=== PATIENT | male | born 1960 | race Caucasian/White ===

== ENCOUNTER 2020-05-20 12:47 | Outpatient (REF) | payer OTHER, SELFPAY | END 2020-05-20 12:48 | disposition home or self-care (01) | LOC: HO.LNP 12:47 | PROVIDERS: Visit Provider Internal Medicine | DX: Z20.828 Contact with and (suspected) exposure to other viral communicable diseases (principal) | CPT/HCPCS: U0003 ==

== ENCOUNTER 2020-05-23 08:59 | Outpatient (REF) | payer OTHER, SELFPAY ==
--- NOTE | 2020-05-23 | PFT_ITS ---
FLOWS: FEV1 81% of predicted at 3.31 L. FVC 89% of predicted at 4.86 L. FEV1 to FVC ratio of 0.68. Positive bronchodilator response. LUNG VOLUMES: Total lung capacity 111% of predicted at 8.72 L. Residual volume 160% of predicted at 4.01 L. Slow vital capacity 88% of predicted at 4.72 L. Expiratory reserve volume 47% of predicted at 0.78 L. Diffusion capacity is normal. IMPRESSION: Moderate obstructive ventilatory defect with positive bronchodilator response. Increased residual volume suggests air trapping. Decreased expiratory reserve volume suggests extrathoracic restriction likely secondary to abdominal obesity. MD ANAND Mensah/MODL / [id number]
== END 2020-05-23 09:00 | disposition home or self-care (01) ==
LOC: HO.RESP 08:59
PROVIDERS: PCP Internal Medicine; Visit Provider Internal Medicine
DX: Z77.098 Contact with and (suspected) exposure to other hazardous, chiefly nonmedicinal, chemicals (principal)
CPT/HCPCS: 94060; 94727; 94729

== ENCOUNTER → 2020-08-09 14:58 | Outpatient (BNVA) | payer OTHER, SELFPAY | PROVIDERS: PCP Internal Medicine; Visit Provider Hospitalist ==

== ENCOUNTER 2021-03-09 08:43 | Outpatient (REF) | payer OTHER, SELFPAY ==
--- NOTE | ~2021-03-09 | XR_ITS ---
EXAMINATION: XR CHEST CLINICAL INFORMATION: COPD COMPARISON: 08/28/2019 TECHNIQUE: 2 views of the chest were obtained. FINDINGS: Hyperinflation stable. No significant abnormality is noted involving the heart, lungs, mediastinum, bony thorax or soft tissues. XR/XR chest 2V IMPRESSION: Stable COPD. No acute superimposed process.
[2021-03-09 09:42] LABS: MANUAL DIFF FLAG NO
[2021-03-09 09:48] LABS: Basophils Absolute Auto 0.1 X10*3/uL (0.0-0.2); Eosinophils Absolute Auto 0.2 X10*3/uL (0.0-0.4); Eosinophils Percent Auto 3.4 % (0-4); Hematocrit 45.2 % (42-52); Hemoglobin 15.6 g/dl (14.0-18.0); Imm Gran Abs Auto 0.07 X10*3/uL (0.00-0.03); Imm Gran Pct Auto 1.2 % (0.0-0.4); Lymphocytes Absolute Auto 1.5 X10*3/uL (1.2-4.9); Lymphocytes Percent Auto 25.2 % (20-40); Mean Corpuscular HGB Conc 34.5 g/dl (31.0-36.0); Mean Corpuscular Hemoglobin 31.8 pg (27.0-33.0); Mean Corpuscular Volume 92.2 fL (80-98); Mean Platelet Volume 8.9 fL (9.4-12.4); Monocytes Absolute Auto 0.7 X10*3/uL (0.1-1.2); Neutrophils Absolute Auto 3.4 X10*3/uL (2.0-8.3); Neutrophils Percent Auto 57.2 % (45-73); Platelet Count 321 X10*3/uL (160-400); Red Cell Distribution Width 12.2 % (11.0-16.0); White Blood Count 5.9 X10*3/uL (4.8-10.8)
[2021-03-09 10:09] LABS: Alanine Aminotransferase 23 U/L (0-40); Albumin Level 4.2 g/dL (3.5-5.0); Alkaline Phosphatase 57 U/L (39-117); Anion Gap 14 (12-20); Aspartate Amino Transferase 17 U/L (5-37); Bilirubin Total 0.5 mg/dL (0.0-1.0); Blood Urea Nitrogen 11 mg/dL (9-16); Calcium 9.5 mg/dL (8.4-10.2); Carbon Dioxide 24 mmol/L (22-29); Chloride 107 mmol/L (96-108); Cholesterol 187 mg/dL; Estimated Glomerular Filt Rate > 60; Glucose Fasting 93 mg/dL (60-99); HDL Cholesterol 44 mg/dL; LDL Cholesterol Calculated 105 mg/dl; Potassium 4.9 mmol/L (3.3-5.1); Sodium 140 mmol/L (135-145); Triglycerides 194 mg/dL
[2021-03-09 10:33] LABS: Prostate Specific Antigen 1.51 ng/mL (<0.05-4.0); Vitamin D 25-OH Total 22.3 ng/mL (>30)
[2021-03-09 11:03] LABS: Vitamin B12 160 pg/mL (200-900)
== END 2021-03-09 08:44 | disposition home or self-care (01) ==
LOC: HO.LAB 08:43
PROVIDERS: Absent Provider Hospitalist; PCP Internal Medicine; Visit Provider Internal Medicine
DX: Z00.00 Encounter for general adult medical examination without abnormal findings (principal); J44.9 Chronic obstructive pulmonary disease, unspecified; Z12.5 Encounter for screening for malignant neoplasm of prostate
CPT/HCPCS: 36415; 71046; 80053; 80061; 82306; 82607; 84153; 85025

== ENCOUNTER 2021-06-22 11:05 | Outpatient (REF) | payer OTHER, SELFPAY ==
[2021-06-22 12:03] LABS: Influenza A PCR NEGATIVE (Negative); Influenza B PCR NEGATIVE (Negative); Resp Syncy Virus RNA Qual PCR NEGATIVE (Negative); SARS COV2 PCR INHOUSE NEGATIVE (Negative)
== END 2021-06-22 11:06 | disposition home or self-care (01) ==
LOC: HO.LNP 11:05
PROVIDERS: Visit Provider Physician Assistant Medical
DX: Z20.822 Contact with and (suspected) exposure to COVID-19 (principal); J06.9 Acute upper respiratory infection, unspecified
CPT/HCPCS: 0241U

== ENCOUNTER 2021-09-29 07:25 | Day surgery (SDC) | payer OTHER, SELFPAY ==
[2021-09-25 11:49] VITALS: BMI 28.8
[2021-09-29 07:27] VITALS: BP 161/89; PULSE 89; RESP 18; TEMP 36.3; O2SAT 98
[2021-09-29] MEDS: Lactated Ringers 1,000 ML 50 ML IVCONT (07:50)
--- NOTE | 2021-09-29 08:28 | P.CONAN_ITS ---
HPI - Anesthesia Eval Consult details Narrative: Screening Colonoscopy [facility] Active Problems Active Problems: All Active Problems (Updated 09/25/21 @ 11:49 by Diana Lion RN) DVT (deep venous thrombosis) (Acute) Viral illness (Acute) Dyspnea (Acute) Asthma-COPD overlap syndrome (Acute) Past Medical History Medical History (Updated 09/25/21 @ 11:49 by Diana Lion RN) Asthma-COPD overlap syndrome COVID-19 vaccine series completed Dyspnea Gout HTN (hypertension) Family History Family history of problems with anesthesia: No Surgical History Surgical History (Updated 09/25/21 @ 11:37 by Diana Lion RN) H/O colonoscopy History of Problems with Anesthesia: No Social History Social History (Updated 08/09/20 @ 15:11 by SAMANTHA Faustin) Are you a primary skin care instructor to a significant other at home: No Do you presently have visiting nurse or other home services: No Patient Tobacco Use Status: Never used Tobacco Use of substances other than those prescribed or required for medical reasons: No Have you been hit, kicked, punched, or otherwise hurt by someone within the past year? If so, by whom?: No Are you DNR?: No Advance Directives: No Advance Directives Information Provided: Yes (brochure mailed) Advance Directives on File: No Recently lost weight without trying: No Eating poorly because of decreased appetite: No Nutrition Risks: No Nutritional Risk Poor oral hygiene: No Meds Allergies Allergy/AdvReac Type Severity Reaction Status Date / Time No Known Allergies Allergy Verified 06/22/21 09:20 Active Medications: Current Medications Lactated Ringer's (Lr) 1,000 mls @ 50 mls/hr IVCONT .Q20H NASRIN Last Admin: 09/29/21 07:50 Dose: 50 mls/hr Documented by: Sodium Biphosphate/Sodium Phosphate (Sodium Phosphate,[place]-Dibasic 133 Ml Enema) 133 ml [place] ONCE PRN PRN Reason: Poor Colonoscopy Prep Results Home Medications Medication Instructions Recorded Confirmed Last Taken Type lisinopril 10 mg tablet 10 mg PO DAILY 08/09/20 09/25/21 Unknown History colchicine 0.6 mg tablet 1 tab PO BID PRN 09/25/21 09/25/21 Unknown History Exam Exam Date and Time: September 29, 2021 0828 Height,Weight and Vital Signs: Height 6 ft 2 in Weight 101.605 kg Last Vital Signs Temp 97.4 F 09/29/21 07:27 Pulse 89 09/29/21 07:27 Resp 18 09/29/21 07:27 BP 161/89 H 09/29/21 07:27 Pulse Ox 98 09/29/21 07:27 Airway Mallampati Class: III TM Dist: >3cm Neck ROM: Full Loose/Missing/Broken Teeth: No Heart: rrr+s1s2 Lungs: cta b/l Assessment and Plan Assessment Anesthesia Assessment: Anesthesia Plan Discussed and Chart Reviewed Final Anesthetic Review Family History of Problems with Anesthesia: No History of Problems with Anesthesia: No NPO: Yes ASA Class: III Final Preanesthetic Review: No Changes in Pt Med Stat, Meds/Allgs Chart Reviewed, Consent Obtained/Reviewed and Anes Risks/Benef Reviewed Patient Risk: Intermediate Procedure Risk: Low Assessment/Block/Sedation in SS: Assess/Block/Sedation-SS Anesthetic Plan Anesthetic Plan: MAC: and Agree w/ Assess. and Plan Disposition: Standard PACU
--- NOTE | 2021-09-29 09:29 | PM.OP ---
Brief Operative Note Date of Service: 09/29/21 Pre-op diagnosis: Screening Post-op diagnosis: other (Colon polyps) Procedure: Colonoscopy to the cecum and TI with hot snare polypectomy x 3 Surgeon: Tevin Monroy Anesthesia: MAC Was an Web Operations Lead used for this Procedure?: No Estimated blood loss (mL): 0 Pathology: other (A. Proximal ascending colon polyp B. Polyps at 30cm) Condition: stable Disposition: PACU
[2021-09-29 09:30] VITALS: BP 108/65; PULSE 70; RESP 14; TEMP 36.1; O2SAT 95
[2021-09-29 09:45] VITALS: BP 156/96; PULSE 73; RESP 18; TEMP 36.1; O2SAT 100
--- NOTE | 2021-09-29 10:55 | OP_ITS ---
SURGEON: Tevin Monroy MD INDICATIONS: The patient presents for evaluation of colorectal cancer screening and personal history of tubular adenoma of the colon. Full consent was obtained from him for this, including risks of bleeding and perforation. PREOPERATIVE DIAGNOSIS: Colorectal cancer screening. POSTOPERATIVE DIAGNOSIS: Colorectal cancer screening, colon polyps, diverticulosis, and internal hemorrhoids. PROCEDURE PERFORMED: ESTIMATED BLOOD LOSS: COMPLICATIONS: ANESTHESIA: Monitored anesthesia care. ASSISTANTS: SPECIMENS: PROCEDURE: Colonoscopy to the cecum and terminal ileum with hot snare polypectomy x3. DESCRIPTION OF PROCEDURE: The patient was placed in the left lateral decubitus position. The digital rectal exam revealed no abnormalities. The Olympus video pediatric colonoscope was entered into the rectum and advanced easily to the cecum. Once in the cecum, I did identify normal-appearing cecal pouch with appendiceal orifice and a normal-appearing ileocecal valve. The terminal ileum was cannulated and appeared normal. Scope was withdrawn back in the colon. The entire cecum and ileocecal valve appeared normal. The scope was slowly withdrawn assessing all mucosal surfaces carefully. Preparation was excellent. In the proximal ascending colon was an approximately 6 to 8 mm grossly adenomatous polyp, which was removed with a hot snare polypectomy and recovered by suction. The polypectomy site appeared clean, without any sign of residual polyp, nor bleeding. At 30 cm, there were 2 approximately 6 to 8 mm polyps, which were each snared and removed with a hot snare polypectomy. Both polypectomy sites appeared clean, without any sign of residual polyp nor bleeding. The polyps were recovered by suction. I did not visualize any other polyps, colitis, or angiodysplasia. There was a mild amount of sigmoid diverticulosis. In the rectum, scope was retroflexed visualizing internal hemorrhoids, but no other pathology. The rectal mucosa appeared normal. The scope was straightened and withdrawn from the patient. He tolerated the procedure well and was returned to recovery area in stable condition. IMPRESSION: 1. Colon polyps, status post hot snare polypectomy. 2. Diverticulosis. 3. Internal hemorrhoids. PLAN: The results of the pathology will be checked. I would recommend a repeat colonoscopy in 5 years for further screening and surveillance. He was advised not to use any aspirin and NSAIDs for 1 week. Tevin Monroy MD RMW/MODL / [id number]
== END 2021-09-29 10:07 | disposition home or self-care (01) ==
PROVIDERS: PCP Internal Medicine; Visit Provider Internal Medicine
PROC: 0DJD8ZZ Inspection of Lower Intestinal Tract, Via Natural or Artificial Opening Endoscopic (ICD-10-PCS; CPT 45378; principal; 2021-09-29 08:30)
DX: Z12.11 Encounter for screening for malignant neoplasm of colon (principal); Z86.010 Personal history of colon polyps; D12.2 Benign neoplasm of ascending colon; D12.5 Benign neoplasm of sigmoid colon; K57.30 Diverticulosis of large intestine without perforation or abscess without bleeding; K64.8 Other hemorrhoids; I10 Essential (primary) hypertension; E53.8 Deficiency of other specified B group vitamins; Z79.899 Other long term (current) drug therapy
CPT/HCPCS: 45385; 88305

== ENCOUNTER 2022-12-18 17:17 | Outpatient (REF) | payer OTHER, SELFPAY ==
--- NOTE | ~2022-12-18 | XR_ITS ---
EXAMINATION: XR FOOT, RIGHT CLINICAL INFORMATION: Right foot pain. COMPARISON: None available. TECHNIQUE: AP, lateral, and oblique views of the right foot. FINDINGS: There is mild hallux valgus deformity with mild first metatarsophalangeal degenerative joint changes. There is no acute fracture or dislocation. The tarsal bones are normally aligned. There is a small retrocalcaneal spur. The soft tissues are unremarkable. XR/XR foot RT min 3V IMPRESSION: 1. Mild hallux valgus deformity and mild first metatarsophalangeal osteoarthritis. 2. Small degenerative retrocalcaneal spur. 3. No acute fracture.
[2022-12-18 18:24] LABS: Anion Gap 15 (12-20); Blood Urea Nitrogen 18 mg/dL (9-16); C Reactive Protein < 0.10 mg/dL (< or = 0.50); Carbon Dioxide 26 mmol/L (22-29); Chloride 105 mmol/L (96-108); Estimated Glomerular Filt Rate > 60; Glucose Random 93 mg/dL (60-115); Potassium 4.6 mmol/L (3.3-5.1); Sodium 141 mmol/L (135-145)
[2022-12-18 19:02] LABS: Uric Acid 7.3 mg/dL (3.4-7.0)
[2022-12-18 19:23] LABS: Erythrocyte Sedimentation Rate 2 MM/HR (0-15)
== END 2022-12-18 17:18 | disposition home or self-care (01) ==
LOC: HO.LAB 17:17
PROVIDERS: PCP Internal Medicine; Visit Provider Internal Medicine
DX: M79.641 Pain in right hand (principal); Z87.39 Personal history of other diseases of the musculoskeletal system and connective tissue
CPT/HCPCS: 36415; 73630; 80048; 84550; 85652; 86140

== ENCOUNTER 2023-09-10 10:06 | Outpatient (REF) | payer OTHER, SELFPAY ==
[2023-09-10 10:51] LABS: MANUAL DIFF FLAG NO
[2023-09-10 11:02] LABS: Basophils Absolute Auto 0.1 X10*3/uL (0.0-0.2); Basophils Percent Auto 1.1 % (0-2); Eosinophils Absolute Auto 0.1 X10*3/uL (0.0-0.4); Eosinophils Percent Auto 1.6 % (0-4); Hematocrit 50.4 % (42.0-52.0); Hemoglobin 16.8 g/dl (14.0-18.0); Imm Gran Abs Auto 0.12 X10*3/uL (0.00-0.03); Imm Gran Pct Auto 1.5 % (0.0-0.4); Lymphocytes Absolute Auto 1.6 X10*3/uL (1.2-4.9); Lymphocytes Percent Auto 19.9 % (20-40); Mean Corpuscular HGB Conc 33.3 g/dl (31.0-36.0); Mean Corpuscular Hemoglobin 31.1 pg (27.0-33.0); Mean Corpuscular Volume 93.2 fL (80.0-98.0); Mean Platelet Volume 8.7 fL (9.4-12.4); Monocytes Absolute Auto 0.9 X10*3/uL (0.1-1.2); Monocytes Percent Auto 11.2 % (2-11); Neutrophils Absolute Auto 5.3 x10*3/uL (2.0-8.3); Neutrophils Percent Auto 64.7 % (45-73); Platelet Count 342 X10*3/uL (160-400); Red Blood Count 5.41 X10*6/uL (4.60-5.80); Red Cell Distribution Width 12.2 % (11.0-16.0); White Blood Count 8.1 X10*3/uL (4.8-10.8)
[2023-09-10 11:27] LABS: Alanine Aminotransferase 18 U/L (0-40); Albumin Level 4.3 g/dL (3.5-5.0); Alkaline Phosphatase 55 U/L (39-117); Anion Gap 13 (12-20); Aspartate Amino Transferase 14 U/L (5-37); Bilirubin Total 0.7 mg/dL (0.0-1.0); Blood Urea Nitrogen 13 mg/dL (9-16); C Reactive Protein < 0.10 mg/dL (< or = 0.50); Calcium 9.5 mg/dL (8.4-10.2); Carbon Dioxide 25 mmol/L (22-29); Chloride 108 mmol/L (96-108); Cholesterol 207 mg/dL (<200); Estimated Glomerular Filt Rate > 60; Glucose Random 100 mg/dL (60-115); Potassium 4.8 mmol/L (3.3-5.1); Sodium 141 mmol/L (135-145); Total Protein 7.5 g/dL (6.5-8.0)
[2023-09-10 11:28] LABS: Prostate Specific Antigen Scr 2.53 ng/mL (<0.05-4.0)
[2023-09-10 11:34] LABS: Vitamin B12 215 pg/mL (200-900)
== END 2023-09-10 10:07 | disposition home or self-care (01) ==
LOC: HO.10HDL 10:06
PROVIDERS: Visit Provider Internal Medicine
DX: Z12.5 Encounter for screening for malignant neoplasm of prostate (principal); R51.9 Headache, unspecified; E53.8 Deficiency of other specified B group vitamins; R35.1 Nocturia; H53.9 Unspecified visual disturbance
CPT/HCPCS: 36415; 80053; 82465; 82550; 82607; 84153; 85025; 86140

== ENCOUNTER 2024-04-11 11:46 | Outpatient (AMB) | payer OTHER, SELFPAY ==
[2024-04-11 11:47] VITALS: BP 142/86; PULSE 94; TEMP 36.7; O2SAT 96
--- NOTE | 2024-04-11 11:47 | MHC.OFFWIV ---
Intake Vital Signs 04/11/24 11:47 Height 6 ft 2 in BP 142/86 H Blood Pressure Location Rt brachial Position Sitting Pulse 94 Pulse Source Pulse Oximeter Temp 98.1 F Temp Source Oral Pulse Oximetry (%) 96 Oxygen Delivery Method Room Air Intake Visit Reasons: EP COPD/Diff breathing/headache/dizzy Intake Note: pt is here for difficulty breathing with a headache and dizziness. has dx of COPD Patient Tobacco Use Status: Never used Tobacco Allergies No Known Allergies Allergy (Verified 04/11/24 11:48) Do you need a note to return to daycare/school/sports/work: No HPI HPI Comments History of Present Illness Details Patient presents to office with cough He said started last night + chest tightness/SOB + crackling in lungs Denies smoking hx but + COPD diagnosis. No treatment used for it Last week rehabed old house and bad air quality He has bad reaction to smoke usually No fever or chills Tried OTC medicine like DayQuila nd NyQuil No covid test completed at home [facility] Medical History (Updated 04/11/24 @ 12:15 by Sandy Reagan PA-C) Gout COVID-19 vaccine series completed HTN (hypertension) Dyspnea Asthma-COPD overlap syndrome Surgical History (Updated 09/25/21 @ 11:37 by Diana Lion RN) H/O colonoscopy Social History (Updated 08/09/20 @ 15:11 by SAMANTHA Faustin) Are you a primary live in caregiver to a significant other at home: No Do you presently have visiting nurse or other home services: No Patient Tobacco Use Status: Never used Tobacco Review of Systems Const Denies chills, Reports fatigue and Denies fever(s) ENT Denies otalgia, Reports nasal congestion, Denies sinus pressure, Reports sore throat, Denies throat swelling and Denies tongue swelling Card Denies chest pain, Denies rapid heart rate and Reports dyspnea Resp Reports chest congestion, Reports cough, Reports dyspnea and Reports wheezing GI Denies abdominal pain and Denies vomiting Musc Denies myalgias Endo Reports fatigue Aller/Immun Denies throat swelling, Denies tongue swelling and Reports wheezing Physical Exam Vital Signs: Last Vital Signs Temp 98.1 F 04/11/24 11:47 Pulse 94 04/11/24 11:47 BP 142/86 H 04/11/24 11:47 Pulse Ox 96 04/11/24 11:47 Oxygen Delivery Method Room Air 04/11/24 11:47 General: Non-toxic, NAD. Speaking full sentences. Skin: Warm dry throughout Eye: EOMI HENT: Airway patent. Uvula midline. No pharyngeal erythema or edema. No SANDBLAST OPERATOR. Bilateral canals clear. TM non-erythematous, non-bulging. No TM perforation or hemotympanum noted. Respiratory: +rhonchi throughout. No accessory muscle use or stridor Cardiac: RRR. No murmur MSK: Full ROM extremities. Neurology: A/O. No aphasia or facial droop. Gait without abnormality Psych: Good mood and affect Assessment & Plan Assessment & Plan (1) Cough: Code(s): R05.9 - Cough, unspecified Qualifiers: Cough type: acute Qualified Code(s): R05.1 - Acute cough Plan: Pt seen and evaluated Discussed HTN and use of OTC medicine causing Worsening symptoms Albuterol Solution administered by myself; [facility] # [id number] Pt had improvement of airation after tx HR stable <100 post nebulizer No rales noted on xray COVID/flu rsv swab obtained Will cover with prednisone, azithromycin and proair prn Discussed s/e of medications Any CP, SOB or worse go to ED All questions answered at time of d/c and pt had no additional questions Orders: Orders SARS-CoV2/FLU/RSV Today R05.9 - Cough, unspecified AMB Nebulizer Treatment Today R05.9 - Cough, unspecified Medications: New albuterol sulfate 2.5 mg (3 mL) inhalation ONCE 3 mL 0RF wheeze R05.9 - Cough, unspecified albuterol sulfate 90 mcg/actuation (Proair Digihaler) 1 inh inhalation Q4-6H PRN 1 ea 0RF shortness of breath or wheezing azithromycin start on day 2 of therapy 250 mg PO DAILY 6 tabs 0RF 6 days prednisone 40 mg (2 x 20 mg) PO DAILY 8 tabs 0RF Coding Level of Care Code Est Pt Level 4 (91527) Diagnoses Acute cough R05.1 Cough type: acute
== END 2024-04-11 13:33 | disposition home or self-care (01) ==
PROVIDERS: PCP Internal Medicine; Visit Provider Physician Assistant
DX: R05.1 Acute cough (principal)

== ENCOUNTER 2024-04-11 11:46 | Outpatient (REF) | payer OTHER, SELFPAY ==
[2024-04-11 16:24] LABS: Influenza A PCR NEGATIVE (Negative); Influenza B PCR NEGATIVE (Negative); Resp Syncy Virus RNA Qual PCR NEGATIVE (Negative); SARS COV2 PCR INHOUSE NEGATIVE (Negative)
== END 2024-04-11 11:47 | disposition home or self-care (01) ==
LOC: HO.LNP 11:46
PROVIDERS: PCP Internal Medicine; Visit Provider Physician Assistant
DX: R05.9 Cough, unspecified (principal)
CPT/HCPCS: 0241U

== ENCOUNTER 2024-05-27 13:35 | Outpatient (REF) | payer OTHER, SELFPAY ==
[2024-05-27 14:32] LABS: MANUAL DIFF FLAG NO
[2024-05-27 14:40] LABS: Basophils Absolute Auto 0.1 X10*3/uL (0.0-0.2); Basophils Percent Auto 0.8 % (0-2); Eosinophils Absolute Auto 0.2 X10*3/uL (0.0-0.4); Eosinophils Percent Auto 2.5 % (0-4); Hematocrit 49.1 % (42.0-52.0); Hemoglobin 17.1 g/dl (14.0-18.0); Imm Gran Abs Auto 0.08 X10*3/uL (0.00-0.03); Imm Gran Pct Auto 0.9 % (0.0-0.4); Lymphocytes Absolute Auto 1.7 X10*3/uL (1.2-4.9); Lymphocytes Percent Auto 18.4 % (20-40); Mean Corpuscular HGB Conc 34.8 g/dl (31.0-36.0); Mean Corpuscular Hemoglobin 31.3 pg (27.0-33.0); Mean Corpuscular Volume 89.8 fL (80.0-98.0); Mean Platelet Volume 8.6 fL (9.4-12.4); Monocytes Absolute Auto 0.9 X10*3/uL (0.1-1.2); Monocytes Percent Auto 10.5 % (2-11); Neutrophils Percent Auto 66.9 % (45-73); Platelet Count 304 X10*3/uL (160-400); Red Blood Count 5.47 X10*6/uL (4.60-5.80); Red Cell Distribution Width 12.2 % (11.0-16.0)
[2024-06-01 21:08] LABS: Class Alternaria alternata 0; Class Aspergillus fumigatus 0; Class Bermuda Grass 0; Class Birch 0; Class Cat Dander 0; Class Cladosporium herbarum 0; Class Cockroach 0; Class Common Ragweed 0; Class Cottonwood 0; Class Derm. pterony 3; Class Dermatophagoides farinae 3; Class Dog Dander 0; Class Elm 0; Class Maple Box Elder 0; Class Mountain Cedar 0; Class Mouse Urine Protein 0; Class Mugwort 0; Class Oak 0; Class Penicillium crysogenum 0; Class Rough Pigweed 0; Class Sheep Sorrel 0; Class Sycamore 0; Class Timothy Grass 0/1; Class Walnut Tree 0; Class White Ash 0; Class White Mulberry 0; E001 - IgE Cat Dander <0.10 kU/L; E005 - IgE Dog Dander <0.10 kU/L; E072-IgE Mouse Urine <0.10 kU/L; G002 IgE Bermuda Grass <0.10 kU/L; G006 - IgE Timothy Grass 0.17 kU/L; I006-IgE Cockroach, German <0.10 kU/L; Immunoglobulin E 48 kU/L (<OR=114); M001 IgE Penicillium chrysogen <0.10 kU/L; M002 - IgE Cladosporium herbar <0.10 kU/L; M003 - IgE Aspergillus fumigat <0.10 kU/L; M006 - IgE Alternaria alternat <0.10 kU/L; T001 IgE Maple/Box Elder <0.10 kU/L; T003 IgE Common Silver Birch <0.10 kU/L; T006 - IgE Cedar, Mountain <0.10 kU/L; T007 - IgE Oak, White <0.10 kU/L; T008 IgE Elm, American <0.10 kU/L; T010 - IgE Walnut <0.10 kU/L; T011 - IgE Maple Leaf Sycamore <0.10 kU/L; T014 - IgE Cottonwood <0.10 kU/L; T015 - IgE Ash, White <0.10 kU/L; T070 - IgE White Mulberry <0.10 kU/L; W001 - IgE Ragweed, Short <0.10 kU/L; W006 - IgE Mugwort <0.10 kU/L; W014 IgE Pigweed, Common <0.10 kU/L; W018 IgE Sheep Sorrel <0.10 kU/L
== END 2024-05-27 13:36 | disposition home or self-care (01) ==
LOC: HO.LAB 13:35
PROVIDERS: PCP Internal Medicine; Visit Provider Internal Medicine Pulmonary Disease
DX: Z91.09 Other allergy status, other than to drugs and biological substances (principal)
CPT/HCPCS: 36415; 82785; 85025; 86003

== ENCOUNTER 2024-05-27 13:35 | Outpatient (AMB) | payer OTHER, SELFPAY ==
[2024-05-27 13:45] VITALS: BP 140/90; PULSE 96; O2SAT 98; BMI 29.4
--- NOTE | 2024-05-27 13:45 | A.OFFVIS_ITS ---
Vital Signs 05/27/24 13:45 Height 6 ft 2 in Weight 229 lb 4.492 oz BMI 29.4 BP 140/90 H Blood Pressure Location Rt brachial Position Sitting Pulse 96 Pulse Source Doppler Pulse Oximetry (%) 98 Oxygen Delivery Method Room Air Intake Visit Reasons: COPD Allergies No Known Allergies Allergy (Verified 05/27/24 13:47) HPI HPI COPD: Details: 63-year-old gentleman nonsmoker, with underlying history of asthma in his childhood that abated in later 10 years referred for pulmonary evaluation after patient had an episode of chest tightness and dyspnea requiring visit to an urgent care where he was treated with a course of prednisone with resolution of his underlying symptoms. Patient does complain of episodes of chest tightness when exposed to cigarette smoke. He does have multiple first-degree relatives with asthma and environmental allergies. He does complain of intermittent environmental allergies. 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 [facility] Medical History (Updated 05/27/24 @ 14:29 by Tio Vidales MD) Gout COVID-19 vaccine series completed HTN (hypertension) Dyspnea Asthma-COPD overlap syndrome Surgical History (Updated 09/25/21 @ 11:37 by Diana Lion RN) H/O colonoscopy Social History Are you a primary companion caregiver to a significant other at home: No Do you presently have visiting nurse or other home services: No Patient Tobacco Use Status: Never used Tobacco Review of Systems Const Denies daytime sleepiness, Denies excessive sweating, Denies fatigue, Denies fever(s), Denies lethargy, Denies malaise, Denies night sweats, Denies snoring and Denies weight loss Eyes Denies blurry vision and Denies itchy eyes ENT Denies nasal congestion, Denies post nasal drip, Denies sinus pain, Denies sinus pressure and Denies other ( Thrush) Card Denies chest pain, Denies pedal edema, Reports dyspnea, Denies orthopnea and Denies paroxysmal nocturnal dyspnea Resp Denies cough, Denies hemoptysis, Denies excessive phlegm production, Reports dyspnea, Denies snoring and Reports wheezing GI Denies abdominal pain and Denies heartburn Musc Denies myalgias, Denies arthralgias and Denies joint swelling Skin/Breast Denies rash Neuro Denies memory loss and Denies seizure-like activity Psych Denies abnormal sleep pattern, Denies anxiety and Denies memory loss Endo Denies excessive sweating, Denies fatigue and Denies heat intolerance Jean Carlos/Lymph Denies easy bruising Aller/Immun Denies itchy eyes, Denies seasonal rhinorrhea and Reports wheezing Physical Exam Vital Signs: Last Vital Signs Pulse 96 05/27/24 13:45 BP 140/90 H 05/27/24 13:45 Pulse Ox 98 05/27/24 13:45 Oxygen Delivery Method Room Air 05/27/24 13:45 BMI result Body Mass Index 29.4 Const General: no acute distress and alert Nutritional Appearance: not obese Orientation/consciousness: Other orientation findings ( oriented) HEENT Head: Yes atraumatic Eyes General: appearance normal, both eyes and all related structures Sclerae: sclerae normal EOM: EOMs intact bilaterally Neck Neck: Yes supple Lymphatic: no lymphadenopathy noted Resp Effort & Inspection: normal respiratory effort and no use of accessory muscles Auscultation: clear to auscultation bilaterally Cardio Rate: regular rate Rhythm: regular rhythm Heart sounds: no gallops, no murmurs and no rubs Skin General skin exam: other ( warm) Extrem General: No clubbing, No cyanosis and No edema Assessment & Plan Assessment & Plan (1) Asthma: Code(s): J45.909 - Unspecified asthma, uncomplicated Category: Medical Plan: Likely underlying asthma of unclear severity. Will obtain full PFT. Will start on empiric Breo and albuterol MDI. (2) Environmental allergies: Code(s): Z91.09 - Other allergy status, other than to drugs and biological substances Category: Medical Plan: Will obtain IgE level, CBC with differential, and RAST panel for further evaluation. Orders: Orders PFT pulmonary function test Today J44.9 - Chronic obstructive pulmonary disease, unspecified Resp Allergy Profile Region I Today Z91.09 - Other allergy status, other than to drugs and biological substances Complete Blood Count Auto Diff Today Z91.09 - Other allergy status, other than to drugs and biological substances Medications: New fluticasone furoate-vilanterol 200-25 mcg/dose (Breo Ellipta) 1 inh inhalation DAILY 1 ea 6RF J44.9 - Chronic obstructive pulmonary disease, unspecified Refilled albuterol sulfate 90 mcg/actuation (Proair Digihaler) 1 inh inhalation Q4-6H PRN 1 ea 6RF shortness of breath or wheezing J44.9 - Chronic obstructive pulmonary disease, unspecified Coding Level of Care Code New Pt Level 4 (72379) Diagnoses Asthma J45.909 Environmental allergies Z91.09
== END 2024-05-27 14:15 | disposition home or self-care (01) ==
LOC: HO.HPS 13:35
PROVIDERS: PCP Internal Medicine; Visit Provider Internal Medicine Pulmonary Disease
DX: J45.909 Unspecified asthma, uncomplicated (principal); Z91.09 Other allergy status, other than to drugs and biological substances
CPT/HCPCS: 99204

== ENCOUNTER 2024-07-04 13:00 | Outpatient (REF) | payer OTHER, SELFPAY ==
[2024-07-04 10:02] VITALS: PULSE 98; O2SAT 97
--- NOTE | 2024-07-04 12:30 | PFT_ITS ---
Indication: Dyspnea Spirometry [FEV1 to FVC 59%; FEV1 3.13 L; FVC 5.35 L. there was a significant response to bronchodilators noted. Maximum voluntary ventilation 72% predicted] Lung Volumes [Total lung capacity that is 7% predicted; expiratory reserve volume 44% predicted] Diffusion Capacity [DLCO 117% predicted] Comparisons [None] Interpretation [There is a obstructive ventilatory defect consistent with moderate COPD. There is a significant response to bronchodilators noted. Mild decrease in the maximum voluntary ventilation secondary to likely deconditioning. Lung volumes are within normal limits except for decreased expiratory reserve volume likely secondary to an elevated BMI. Diffusing capacity is within normal limits. Clinical correlation warranted.] MTDD
== END 2024-07-04 13:01 | disposition home or self-care (01) ==
LOC: HO.RESP 13:00
PROVIDERS: PCP Internal Medicine; Visit Provider Internal Medicine Pulmonary Disease
DX: J44.9 Chronic obstructive pulmonary disease, unspecified (principal)
CPT/HCPCS: 94010; 94640; 94727; 94729

== ENCOUNTER 2024-07-06 13:08 | Outpatient (AMB) | payer OTHER, SELFPAY ==
[2024-07-06 13:09] VITALS: BP 158/78; PULSE 86; O2SAT 100; BMI 29.9
--- NOTE | 2024-07-06 13:09 | A.OFFVIS_ITS ---
Vital Signs 07/06/24 13:09 Height 6 ft 2 in Weight 233 lb BMI 29.9 BP 158/78 H Blood Pressure Location Rt brachial Position Sitting Pulse 86 Pulse Source Doppler Pulse Oximetry (%) 100 Oxygen Delivery Method Room Air Intake Visit Reasons: COPD Allergies No Known Allergies Allergy (Verified 05/27/24 13:47) HPI HPI COPD: Details: 63-year-old gentleman nonsmoker, with underlying history of asthma in his childhood that abated in later 10 years referred for pulmonary evaluation after patient had an episode of chest tightness and dyspnea requiring visit to an urgent care where he was treated with a course of prednisone with resolution of his underlying symptoms. Patient does complain of episodes of chest tightness when exposed to cigarette smoke. He does have multiple first-degree relatives with asthma and environmental allergies. He does complain of intermittent environmental allergies. 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 After the last office visit patient was started on Breo, however his insurance did not cover so he only continued on albuterol MDI/nebs. He did complete his pulmonary function testing that showed underlying moderate obstructive ventilatory defect with significant bronchodilator response. His immunologic workup shows significant allergic component to his symptoms. [facility] Medical History (Updated 05/27/24 @ 14:29 by Tio Vidales MD) Gout COVID-19 vaccine series completed HTN (hypertension) Dyspnea Asthma-COPD overlap syndrome Surgical History (Updated 09/25/21 @ 11:37 by Diana Lion RN) H/O colonoscopy Social History Are you a primary customer care consultant to a significant other at home: No Do you presently have visiting nurse or other home services: No Patient Tobacco Use Status: Never used Tobacco Review of Systems Const Denies daytime sleepiness, Denies excessive sweating, Denies fatigue, Denies fever(s), Denies lethargy, Denies malaise, Denies night sweats, Denies snoring and Denies weight loss Eyes Denies blurry vision and Denies itchy eyes ENT Denies nasal congestion, Denies post nasal drip, Denies sinus pain, Denies sinus pressure and Denies other ( Thrush) Card Denies chest pain, Denies pedal edema, Denies dyspnea, Denies orthopnea and Denies paroxysmal nocturnal dyspnea Resp Denies cough, Denies hemoptysis, Denies excessive phlegm production, Denies dyspnea, Denies snoring and Denies wheezing GI Denies abdominal pain and Denies heartburn Musc Denies myalgias, Denies arthralgias and Denies joint swelling Skin/Breast Denies rash Neuro Denies memory loss and Denies seizure-like activity Psych Denies abnormal sleep pattern, Denies anxiety and Denies memory loss Endo Denies excessive sweating, Denies fatigue and Denies heat intolerance Jean Carlos/Lymph Denies easy bruising Aller/Immun Denies itchy eyes, Denies seasonal rhinorrhea and Denies wheezing Physical Exam Vital Signs: Last Vital Signs Pulse 86 07/06/24 13:09 BP 158/78 H 07/06/24 13:09 Pulse Ox 100 07/06/24 13:09 Oxygen Delivery Method Room Air 07/06/24 13:09 BMI result Body Mass Index 29.9 Const General: no acute distress and alert Nutritional Appearance: not obese Orientation/consciousness: Other orientation findings ( oriented) HEENT Head: Yes atraumatic Eyes General: appearance normal, both eyes and all related structures Sclerae: sclerae normal EOM: EOMs intact bilaterally Neck Neck: Yes supple Lymphatic: no lymphadenopathy noted Resp Effort & Inspection: normal respiratory effort and no use of accessory muscles Auscultation: clear to auscultation bilaterally Cardio Rate: regular rate Rhythm: regular rhythm Heart sounds: no gallops, no murmurs and no rubs Skin General skin exam: other ( warm) Extrem General: No clubbing, No cyanosis and No edema Assessment & Plan Assessment & Plan (1) Asthma-COPD overlap syndrome: Code(s): J44.9 - Chronic obstructive pulmonary disease, unspecified Category: Medical Plan: Suboptimal control as patient was not able to receive Breo. Switch Breo to Symbicort. Continue albuterol MDI/nebs. (2) Environmental allergies: Code(s): Z91.09 - Other allergy status, other than to drugs and biological substances Category: Medical Plan: Results of immunologic testing reviewed. Patient has significant allergic component to his symptoms, if symptoms fail to be controlled on inhaled corticosteroid, will consider Xolair trial. Medications: New budesonide-formoterol 160-4.5 mcg/actuation (Symbicort) 2 puffs inhalation BID 10.2 grams 6RF Discontinued fluticasone furoate-vilanterol 200-25 mcg/dose (Breo Ellipta) Discontinued Reason: Doctor's Order 1 inh inhalation DAILY 1 ea 6RF J44.9 - Chronic obstructive pulmonary disease, unspecified Coding Level of Care Code Est Pt Level 4 (20197) Complex EM visit Add On G2211 Diagnoses Asthma-COPD overlap syndrome J44.9 Environmental allergies Z91.09
== END 2024-07-06 13:27 | disposition home or self-care (01) ==
PROVIDERS: PCP Internal Medicine; Visit Provider Internal Medicine Pulmonary Disease
DX: J44.9 Chronic obstructive pulmonary disease, unspecified (principal); Z91.09 Other allergy status, other than to drugs and biological substances
CPT/HCPCS: 99214

== ENCOUNTER 2025-01-07 14:52 | Outpatient (AMB) | payer OTHER, SELFPAY ==
--- NOTE | 2025-01-07 15:16 | MHC.PC.OV ---
Vital Signs 01/07/25 15:17 Height 6 ft 2 in Weight 233 lb BMI 29.9 BP 150/80 H Blood Pressure Location Lt brachial Position Sitting Pulse 74 Pulse Source Pulse Oximeter Temp 98.4 F Temp Source Axillary Pulse Oximetry (%) 98 Oxygen Delivery Method Room Air Intake Visit Reasons: Routine Valve Grinder Required: No Accompanied by: Self / Same As Patient Allergies No Known Allergies Allergy (Verified 01/07/25 15:17) Tobacco use date assessed: 01/07/25 Fall risk assessment: No Falls in past year Last assessed Fall Risk: 01/07/25 Dental Screening Dental Screen Date: 01/07/25 Did you have a dental visit in the last 12 months?: Yes Did you have a dental problem in the last 6 months where you did not have access to dental care?: No HPI HPI Comments History of Present Illness Details The patient is a 64 year old male with a past medical history of hypertension, gout, asthma/copd presenting for follow up CV: on lisinopril 150/80. Denies chest pain, exertional dyspnea. No chest pain, exertional dyspnea Gout episodes he treats with colchinie, prednisone. Infrequent COPD-not requiring medicaitons Colonoscopy 09/29/2021 ROS CONSTITUTIONAL: Denies weight loss, fever and chills. HEENT: Denies changes in vision and hearing. RESPIRATORY: Denies SOB and cough. CV: Denies palpitations and CP GI: Denies abdominal pain, nausea, vomiting and diarrhea. : Denies dysuria and urinary frequency. MSK: Denies new myalgia and joint pain. SKIN: Denies rash and pruritus. NEUROLOGICAL: Denies headache PSYCHIATRIC: Denies recent changes in mood. PHYSICAL EXAM: GENERAL: Alert and oriented x 3. NAD EYES: EOMI. Anicteric. HENT: Moist mucous membranes. No scleral icterus. No cervical lymphadenopathy. LUNGS: Clear to auscultation bilaterally. CARDIOVASCULAR: Regular rate and rhythm. No murmur. No JVD. ABDOMEN: Soft, non-tender +bs EXTREMITIES: No edema. Non-tender. SKIN: No rashes or lesions. Warm. NEUROLOGIC: No focal neurological deficits. CN II-XII grossly intact PSYCHIATRIC: Cooperative. Appropriate mood and affect [facility] Medical History Gout COVID-19 vaccine series completed HTN (hypertension) Dyspnea Asthma-COPD overlap syndrome Surgical History H/O colonoscopy (~09/29/21) Family History Mother No problems noted. Father No problems noted. Social History Housing: House Are you a primary daycare manager to a significant other at home: No Do you presently have visiting nurse or other home services: No Patient Tobacco Use Status: Never used Tobacco e-Cigarette/Vaping Use: Never Used service: No Current occupational status: employed Cognitive needs: No Hearing needs: No Vision needs: Yes (reading glasses) Questionnaire PHQ-9 Over the last 2 weeks, how often have you been bothered by any of the following problems? 1. Little interest or pleasure in doing things: not at all 2. Feeling down, depressed, or hopeless: not at all 3. Trouble falling or staying asleep, or sleeping too much: not at all 4. Feeling tired or having little energy: not at all 5. Poor appetite or overeating: not at all 6. Feeling bad about yourself - or that you are a failure or have let yourself or your family down: not at all 7. Trouble concentrating on things, such as reading the newspaper or watching television: not at all 8. Moving or speaking so slowly that other people could have noticed. Or the opposite - being so fidgety or restless that you have been moving around a lot more than usual: not at all 9. Thoughts that you would be better off or of hurting yourself in some way: not at all Total score: 0 Depression Screening Interpretation: Negative Depression Screening Done: Yes 41671 - PHQ-9 Billing: Yes Source: Developed by Drs. Tevin Caraballo, Vicky Pacheco, Earl King and colleagues, with an educational surinder from [employer]. Thrive Questionnaire Date Thrive assessed: 01/07/25 I am a: Patient Within the past 12 months, did the food you bought not last and you didn't have the money to get more?: Never true Within the past 12 months, did you worry whether your food would run out before you got money to buy more?: Never true Do you have trouble paying for medicines?: No Do you have trouble getting transportation to medical appointments?: No Do you have trouble paying your heating and electricity bill?: No Do you have trouble taking care of your child, family member or friend?: No Do you have trouble with day-to-day activities such as bathing, preparing meals, shopping, managing finances, etc.?: No Are you currently unemployed and looking for a job?: No Are you interested in more education?: No THRIVE Score: 0 AUDIT C Alcohol Use Questionnaire (AUDIT-C) 1. How often do you have a drink containing alcohol?: Monthly or less 2. How many drinks containing alcohol do you have on a typical day when you are drinking?: 1 or 2 3. How often do you have six or more drinks on one occasion?: Less than monthly Total Score: 2 SHIRA-7 AMB Questionnaire SHIRA-7 Date SHIRA - 7 assessed: 01/07/25 Feeling nervous, anxious, or on edge: 0 = Not at all Not being able to stop or control worryin = Not at all Worrying too much about different things: 0 = Not at all Trouble relaxin = Not at all Being so restless that it is hard to sit still: 0 = Not at all Becoming easily annoyed or irritable: 0 = Not at all Feeling afraid as if something awful might happen: 0 = Not at all Total SHIRA-7 score (0-4 normal; 5-9 mild; 10-14 moderate; 15-21 severe): 0 Source: Developed by Drs. Tevin Caraballo, Vicky Pacheco, Earl King and colleagues, with an educational surinder from [employer]. Physical exam (Primary Care) Vital Signs: Last Vital Signs Temp 98.4 F 01/07/25 15:17 Pulse 74 01/07/25 15:17 BP 150/80 H 01/07/25 15:17 Pulse Ox 98 01/07/25 15:17 Oxygen Delivery Method Room Air 01/07/25 15:17 BMI result Body Mass Index 29.9 Tobacco/Smoking Status: Tobacco use Status Tobacco use date assessed 01/07/25 01/07/25 15:19 Patient Tobacco Use Status Never used Tobacco 01/07/25 15:19 e-Cigarette/Vaping Use Never Used 01/07/25 15:19 PHQ-9: PHQ-9 Score PHQ-9: Total score 0 01/07/25 15:19 Depression Screening Interpretation: Negative Thrive Assessment: Date of Thrive Assessment Date Thrive assessed 01/07/25 01/07/25 15:19 Coding Level of Care Code New Pt Level 4 (11706) Complex EM visit Add On G2211 Diagnoses Primary hypertension I10 Hypertension type: primary hypertension Asthma-COPD overlap syndrome J44.9 Additional Codes PHQ-9 - 69167 - PHQ-9 Billing: Yes ([id number]) Assessment & Plan Assessment & Plan (1) HTN (hypertension): Code(s): I10 - Essential (primary) hypertension Category: Medical Qualifiers: Hypertension type: primary hypertension Qualified Code(s): I10 - Essential (primary) hypertension (2) Asthma-COPD overlap syndrome: Code(s): J44.9 - Chronic obstructive pulmonary disease, unspecified Category: Medical Plan 64 year old to establish care past medical surgical social reviewed HTN suboptimal control. Increase lisinopril to 20mg daily Gout-treats prn. Has improved dietary/lifestyle Labs ordered Orders: Orders Prostate Specific Antigen Today I10 - Essential (primary) hypertension, J44.9 - Chronic obstructive pulmonary disease, unspecified, R73.09 - Other abnormal glucose, Z13.0 - Encounter for screening for diseases of the blood and blood-forming organs and certain disorders involving the immune mechanism, Z13.228 - Encounter for screening for other metabolic disorders Vitamin B12 and Folate Today R79.89 - Other specified abnormal findings of blood chemistry Complete Blood Count Auto Diff Today I10 - Essential (primary) hypertension, R73.09 - Other abnormal glucose, Z13.0 - Encounter for screening for diseases of the blood and blood-forming organs and certain disorders involving the immune mechanism, Z13.228 - Encounter for screening for other metabolic disorders Comprehensive Met. Panel Today I10 - Essential (primary) hypertension, J44.9 - Chronic obstructive pulmonary disease, unspecified, R73.09 - Other abnormal glucose, Z13.0 - Encounter for screening for diseases of the blood and blood-forming organs and certain disorders involving the immune mechanism, Z13.228 - Encounter for screening for other metabolic disorders Lipid Panel Today I10 - Essential (primary) hypertension, J44.9 - Chronic obstructive pulmonary disease, unspecified, R73.09 - Other abnormal glucose, Z13.0 - Encounter for screening for diseases of the blood and blood-forming organs and certain disorders involving the immune mechanism, Z13.228 - Encounter for screening for other metabolic disorders Hemoglobin A1c Today I10 - Essential (primary) hypertension, J44.9 - Chronic obstructive pulmonary disease, unspecified, R73.09 - Other abnormal glucose, Z13.0 - Encounter for screening for diseases of the blood and blood-forming organs and certain disorders involving the immune mechanism, Z13.228 - Encounter for screening for other metabolic disorders Medications: New lisinopril 20 mg PO DAILY 90 tabs 3RF Discontinued lisinopril Discontinued Reason: Doctor's Order 10 mg PO DAILY 90 tabs 3RF
[2025-01-07 15:17] VITALS: BP 150/80; PULSE 74; TEMP 36.9; O2SAT 98; BMI 29.9
--- OUTSIDE RECORDS SUMMARY | 2025-01-07 16:09 | XMS_ITS | Patient Health Record ---
Author Organization [facility] Address [address] [place] [address] Care Team Providers Care Fur Matcher Name Role Phone Adam Abbasi MD Primary Care Provider Khari Vizcarra Unavailable [phone] Allergies No Known Allergies Reason For Referral No Information Medications Medication SIG (Take, Route, Fr equency, Duration) Notes Start Date End Date Status Lisinopril 10 MG 1 tablet Orally Once a day Active Immunizations Vaccine Route Administration Date Status Comme nts Influenza Unknown 08/16/2021 Refused Problems Problem Type SNOMED Code ICD Code Onset Dates Problem Status W/U Status Risk Notes Problem 848265686 Encounter for screening for malignant neoplasm of colon (Z12.11) Active confirmed Problem Screening for malignant neoplasm of rectum (589447934) Encounter for screening for malignant neoplasm of rectum (Z12.12) Active confirmed Problem 12114017 Preprocedural examination (Z01.818) Active confirmed Problem 598760107 Hx of adenomatou s colonic polyps (Z86.010) Active confirmed Problem Diverticulosis of colon (922893630) Diverticulosis of colon (K57.30) Active confirmed Plan Of Treatment Pending Test Test Name Order Date Pathology 09/29/2021 Future Test Test Name Order Date COLONOSCOPY 07/27/2015 COLONOSCOPY 08/16/2021 Insurance Providers Payer Name Payer Address Payer Phone Subscriber Number Group Number Insured Name Patient Relationship to Insured Coverage Start Date Coverage End Date [employer] [place] [address] [address] [place] [address] [id number] KHARI KAY Self - patient is the insured Medical (General) History Medical History History ICD Code Colonoscopy 6-28-2010 and in 2004--small tubular adenomas removed, mild sigmoid diverticulosis, small internal hemorrhoids HTN Denies AL,DM,CVA,Lung disease,renal dise ase Colonoscopy September 2015 with a small tubu lar adenoma removed Low Vit B12 Surgical History Surgery Date(Month/Year)
== END 2025-01-07 15:56 | disposition home or self-care (01) ==
LOC: HO.HMCHD 14:52
PROVIDERS: PCP Internal Medicine; Visit Provider Internal Medicine
DX: I10 Essential (primary) hypertension (principal); J44.9 Chronic obstructive pulmonary disease, unspecified

== ENCOUNTER → 2025-01-07 14:52 | Outpatient (BNVA) | payer OTHER, SELFPAY | PROVIDERS: PCP Internal Medicine; Visit Provider Internal Medicine | DX: I10 Essential (primary) hypertension (principal); J44.89 Other specified chronic obstructive pulmonary disease; M10.9 Gout, unspecified; Z79.899 Other long term (current) drug therapy; Z13.30 Encounter for screening examination for mental health and behavioral disorders, unspecified; Z13.31 Encounter for screening for depression | CPT/HCPCS: 96127 ==

== ENCOUNTER 2025-01-08 08:21 | Outpatient (REF) | payer OTHER, SELFPAY ==
[2025-01-08 10:01] LABS: MANUAL DIFF FLAG NO
[2025-01-08 10:10] LABS: Basophils Absolute Auto 0.1 X10*3/uL (0.0-0.2); Basophils Percent Auto 1.4 % (0-2); Eosinophils Absolute Auto 0.2 X10*3/uL (0.0-0.4); Eosinophils Percent Auto 2.6 % (0-4); Hematocrit 45.8 % (42.0-52.0); Hemoglobin 16.1 g/dl (14.0-18.0); Imm Gran Abs Auto 0.09 X10*3/uL (0.00-0.03); Imm Gran Pct Auto 1.4 % (0.0-0.4); Lymphocytes Absolute Auto 1.5 X10*3/uL (1.2-4.9); Lymphocytes Percent Auto 22.9 % (20-40); Mean Corpuscular HGB Conc 35.2 g/dl (31.0-36.0); Mean Corpuscular Hemoglobin 32.1 pg (27.0-33.0); Mean Corpuscular Volume 91.2 fL (80.0-98.0); Mean Platelet Volume 8.8 fL (9.4-12.4); Monocytes Absolute Auto 0.7 X10*3/uL (0.1-1.2); Monocytes Percent Auto 10.9 % (2-11); Neutrophils Percent Auto 60.8 % (45-73); Platelet Count 347 X10*3/uL (160-400); Red Blood Count 5.02 X10*6/uL (4.60-5.80); Red Cell Distribution Width 12.1 % (11.0-16.0); White Blood Count 6.6 X10*3/uL (4.8-10.8)
[2025-01-08 10:31] LABS: Alanine Aminotransferase 21 U/L (0-40); Albumin Level 4.2 g/dL (3.5-5.0); Alkaline Phosphatase 56 U/L (39-117); Anion Gap 12 (12-20); Aspartate Amino Transferase 21 U/L (5-37); Bilirubin Total 0.6 mg/dL (0.0-1.0); Blood Urea Nitrogen 10 mg/dL (9-16); Calcium 9.1 mg/dL (8.4-10.2); Carbon Dioxide 23 mmol/L (22-29); Chloride 110 mmol/L (96-108); Cholesterol 202 mg/dL (<200); Estimated Glomerular Filt Rate > 60; Glucose Random 115 mg/dL (60-115); HDL Cholesterol 46 mg/dL (>40); LDL Cholesterol Calculated 109 mg/dL (<100); Potassium 4.3 mmol/L (3.3-5.1); Sodium 141 mmol/L (135-145); Total Protein 6.8 g/dL (6.5-8.0); Triglycerides 237 mg/dL (<150)
[2025-01-08 10:56] LABS: Estimated Average Glucose 100 mg/dL; Hemoglobin A1C 143.0124 umol/L; Hemoglobin A1c % 5.1 % (<6.0)
[2025-01-08 11:05] LABS: Folate 8.1 ng/mL (> or = 4.0); Prostate Specific Antigen 3.56 ng/mL (<0.05-4.0); Vitamin B12 < 148 pg/mL (200-900)
== END 2025-01-08 08:22 | disposition home or self-care (01) ==
LOC: HO.10HDL 08:21
PROVIDERS: Visit Provider Internal Medicine
DX: J44.9 Chronic obstructive pulmonary disease, unspecified (principal); I10 Essential (primary) hypertension; R73.09 Other abnormal glucose; Z13.0 Encounter for screening for diseases of the blood and blood-forming organs and certain disorders involving the immune mechanism; Z13.228 Encounter for screening for other metabolic disorders; R79.89 Other specified abnormal findings of blood chemistry; Z12.5 Encounter for screening for malignant neoplasm of prostate
CPT/HCPCS: 36415; 80053; 80061; 82607; 82746; 83036; 84153; 85025

== ENCOUNTER 2025-05-19 09:25 | Outpatient (AMB) | payer OTHER, SELFPAY ==
[2025-05-19 08:45] VITALS: BP 140/82; PULSE 86; TEMP 36.2; O2SAT 98; BMI 37.0
--- NOTE | 2025-05-19 08:45 | A.OFFPC_ITS ---
Vital Signs 05/19/25 08:45 Height 6 ft 2 in Weight 288 lb 8 oz BMI 37.0 BP 140/82 H Blood Pressure Location Lt brachial Position Sitting Pulse 86 Pulse Source Pulse Oximeter Temp 97.2 F Temp Source Temporal Artery Scan Pulse Oximetry (%) 98 Oxygen Delivery Method Room Air Intake Visit Reasons: WILLAM / Dr Sifuentes / Dr Abbasi Bagging Machine Operator Required: No Accompanied by: Self / Same As Patient Allergies No Known Allergies Allergy (Verified 05/19/25 08:45) Medication List - Last Reconciled 05/30/25 by LIANE George latanoprost 0.005% cayden ophthalmic (eye) lisinopril 20 mg PO DAILY Tobacco use date assessed: 05/19/25 Fall risk assessment: No Falls in past year Last assessed Fall Risk: 05/19/25 Dental Screening Dental Screen Date: 05/19/25 Did you have a dental visit in the last 12 months?: Yes Did you have a dental problem in the last 6 months where you did not have access to dental care?: No HPI HPI Comments History of Present Illness Details The patient is a 64-year-old male with HTN, Gout, IBS, COPD and obesity presenting to establish care and with concerns about proteinuria, vitamin B12 deficiency, and bowel irregularities. The patient reports noticing foam in his urine, which he learned could indicate proteinuria and potential kidney function issues. He experiences itchy dry skin and occasional pain, which he associates with kidney function concerns. The patient has a history of vitamin B12 deficiency, which was confirmed by previous lab work showing low levels. He has been taking vitamin B12 supplements inconsistently and has previously received B12 injections. The patient reports chronic bowel issues, characterized by frequent bowel movements up to four or five times a day, with no specific dietary triggers identified. He does not consume much fruit or vegetables and occasionally drinks beer, which he suspects may contribute to his symptoms. The patient has a history of Chronic Obstructive Pulmonary Disease (COPD) but is not currently using inhalers. He experiences wheezing in the morning and occasionally hears his heartbeat in his pillow, which he attributes to Premature Ventricular Contractions (PVCs). The patient has been diagnosed with hypertension, currently managed with lisinopril 20 mg, which was increased from 10 mg six months ago. He occasionally misses doses and is concerned about the potential need for higher doses. His BP today was 140/82 The patient is concerned about prostate enlargement, given his age and symptoms of groin pain after riding a motorcycle. Medical History: - Chronic Obstructive Pulmonary Disease (COPD) - Hypertension - Vitamin B12 deficiency Medications: - Lisinopril 20 mg for hypertension - Colchicine and prednisone as needed fo r gout Patient was informed and verbally consented to the use of an ambient scribe for clinic note documentation during this visit. [facility] Medical History (Updated 05/30/25 @ 13:29 by LIANE George) Asthma-COPD overlap syndrome COVID-19 vaccine series completed Diarrhea Dyspnea Foamy urine Gout HTN (hypertension) Obesity (BMI 35.0-39.9 without comorbidity) Surgical History H/O colonoscopy (~09/29/21) Family History (Updated 05/19/25 @ 09:40 by Isamar Pringle MA) Mother No problems noted. Father No problems noted. Social History Housing: House Are you a primary care management assistant to a significant other at home: No Do you presently have visiting nurse or other home services: No Patient Tobacco Use Status: Never used Tobacco e-Cigarette/Vaping Use: Never Used service: No Current occupational status: employed Cognitive needs: No Hearing needs: No Vision needs: Yes (reading glasses) Questionnaire PHQ-9 Over the last 2 weeks, how often have you been bothered by any of the following problems? 1. Little interest or pleasure in doing things: not at all 2. Feeling down, depressed, or hopeless: not at all 3. Trouble falling or staying asleep, or sleeping too much: not at all 4. Feeling tired or having little energy: not at all 5. Poor appetite or overeating: not at all 6. Feeling bad about yourself - or that you are a failure or have let yourself or your family down: not at all 7. Trouble concentrating on things, such as reading the newspaper or watching television: not at all 8. Moving or speaking so slowly that other people could have noticed. Or the opposite - being so fidgety or restless that you have been moving around a lot more than usual: not at all 9. Thoughts that you would be better off or of hurting yourself in some way: not at all Total score: 0 Depression Screening Interpretation: Negative Depression Screening Done: Yes Source: Developed by Drs. Tevin Caraballo, Vicky Pacheco, Earl King and colleagues, with an educational surinder from [employer]. Thrive Questionnaire Date Thrive assessed: 05/19/25 I am a: Patient Within the past 12 months, did the food you bought not last and you didn't have the money to get more?: Never true Within the past 12 months, did you worry whether your food would run out before you got money to buy more?: Never true Do you have trouble paying for medicines?: No Do you have trouble getting transportation to medical appointments?: No Do you have trouble paying your heating and electricity bill?: No Do you have trouble taking care of your child, family member or friend?: No Do you have trouble with day-to-day activities such as bathing, preparing meals, shopping, managing finances, etc.?: No Are you currently unemployed and looking for a job?: No Are you interested in more education?: No THRIVE Score: 0 AUDIT C Alcohol Use Questionnaire (AUDIT-C) 1. How often do you have a drink containing alcohol?: Monthly or less 2. How many drinks containing alcohol do you have on a typical day when you are drinking?: 1 or 2 3. How often do you have six or more drinks on one occasion?: Less than monthly Total Score: 2 SHIRA-7 AMB Questionnaire SHIRA-7 Date SHIRA - 7 assessed: 05/19/25 Feeling nervous, anxious, or on edge: 0 = Not at all Not being able to stop or control worryin = Not at all Worrying too much about different things: 0 = Not at all Trouble relaxin = Not at all Being so restless that it is hard to sit still: 0 = Not at all Becoming easily annoyed or irritable: 0 = Not at all Feeling afraid as if something awful might happen: 0 = Not at all Total SHIRA-7 score (0-4 normal; 5-9 mild; 10-14 moderate; 15-21 severe): 0 Source: Developed by Vicky Kumar Kurt Kroenke and colleagues, with an educational surinder from [employer]. Review of Systems Narrative - Genitourinary: Reports foam in urine, denies dysuria - Dermatological: Reports itchy dry skin - Gastrointestinal: Reports frequent bowel movements, denies constipation - Respiratory: Reports morning wheezing, denies cough - Cardiovascular: Reports hearing heartbeat in pillow, denies chest pain Physical exam (Primary Care) Vital Signs: Last Vital Signs Temp 97.2 F 05/19/25 08:45 Pulse 86 05/19/25 08:45 BP 140/82 H 05/19/25 08:45 Pulse Ox 98 05/19/25 08:45 Oxygen Delivery Method Room Air 05/19/25 08:45 BMI result Body Mass Index 37.0 GENERAL Well developed, obese, in no apparent distress HEENT Head-Normocephalic Eyes- PERRLA, EOMI, Conjuctiva clear, lids WNL Ears- Canals clear, TMs WNL Mouth/Throat-No lesions, no erythema, no exudate Neck- Supple, No lymphadenopathy, thyroid WNL RESPIRATORY Normal I:E, Clear to auscultation CARDIOVASCULAR Regular, rate and rhythm, No murmurs or rubs GASTROINTESTINAL Soft, nontender, normal bowel sounds, no masses MUSCULOSKELETAL Back- nontender Joints- no swelling or deformity NEUROLOGICAL Gait normal PSYCHIATRIC Oriented to person, place and time Mood and affect WNL Appearance WNL Speech WNL Thought processes WNL Tobacco/Smoking Status: Tobacco use Status Tobacco use date assessed 05/19/25 05/19/25 08:50 Patient Tobacco Use Status Never used Tobacco 05/19/25 08:47 e-Cigarette/Vaping Use Never Used 05/19/25 08:47 PHQ-9: PHQ-9 Score PHQ-9: Total score 0 05/30/25 01:12 Depression Screening Interpretation: Negative Thrive Assessment: Date of Thrive Assessment Date Thrive assessed 05/19/25 05/19/25 08:50 Coding Level of Care Code Established Pt Est Pt Level 4 (37433) Patient Type Established Diagnoses Primary hypertension I10 Hypertension type: primary hypertension Low vitamin B12 level R79.89 Foamy urine R82.998 Asthma-COPD overlap syndrome J44.9 Functional diarrhea K59.1 Diarrhea type: functional diarrhea Gout M10.9 Obesity (BMI 35.0-39.9 without comorbidity) E66.9 Time Spent (min) 35 Comment Time spent on chart review, Medication reconciliation, H&P, patient education and orders Assessment & Plan Assessment & Plan (1) HTN (hypertension): Comment: BP today was 140/82 Code(s): I10 - Essential (primary) hypertension Category: Medical Qualifiers: Hypertension type: primary hypertension Qualified Code(s): I10 - Essential (primary) hypertension Plan: The current management with lisinopril 20 mg is continued, with a follow-up in eight weeks to reassess blood pressure levels and adjust medication if necessary. (2) Low vitamin B12 level: Code(s): R79.89 - Other specified abnormal findings of blood chemistry Category: Medical Plan: The plan involves repeating the vitamin B12 level to assess current status and determine if oral supplementation is sufficient or if intramuscular injections are necessary. (3) Foamy urine: Code(s): R82.998 - Other abnormal findings in urine Category: Medical Plan: The plan includes conducting a urine test to evaluate protein levels and repe ating kidney function tests to monitor any changes. (4) Asthma-COPD overlap syndrome: Code(s): J44.9 - Chronic obstructive pulmonary disease, unspecified Category: Medical Plan: The patient is advised to consider using a rescue inhaler if symptoms worsen, although he currently does not require daily inhalers. Patient to follow up in 2 months or sooner if symptoms persist or worsen. (5) Diarrhea: Code(s): R19.7 - Diarrhea, unspecified Category: Medical Qualifiers: Diarrhea type: functional diarrhea Qualified Code(s): K59.1 - Functional diarrhea Plan: The patient is advised to keep a food diary to identify potential dietary triggers and consider using fiber supplements like Benefiber to manage symptoms. Patient to follow up in 2 months or sooner if symptoms persist or worsen. (6) Gout: Code(s): M10.9 - Gout, unspecified Category: Medical Plan: Will use Colchicine or Prednisone PRN for acute flares. Patient to follow up as needed if symptoms persist or worsen. (7) Obesity (BMI 35.0-39.9 without comorbidity): Comment: BMI today was 37.0 Code(s): E66.9 - Obesity, unspecified Category: Medical Plan: Discussed the health risks of obesity with the patient. Reviewed benefits of even moderate weight loss with the patient. Patient will gradually try and increase exercise to 30-40 min 5-7 times per week. We discussed the patient adding more fruits and vegetables to their diet. Will monitor weight and follow up in 2 months. Plan During the visit, we discussed the importance of monitoring proteinuria and vitamin B12 levels, and the potential need for further testing to assess kidney function and prostate health. We also reviewed the management of COPD and hypertension, emphasizing the need for regular follow-up and medication adhere nce. The patient was advised on lifestyle modifications, including dietary adjustments and the use of fiber supplements to manage bowel symptoms. Orders: Orders Complete Blood Count no Diff 05/19/25 R79.89 - Other specified abnormal findings of blood chemistry, I10 - Essential (primary) hypertension Comprehensive Met. Panel 05/19/25 R82.998 - Other abnormal findings in urine, Z91.09 - Other allergy status, other than to drugs and biological substances Vitamin B12 05/19/25 R79.89 - Other specified abnormal findings of blood chemistry TSH reflex Free T4 05/19/25 I10 - Essential (primary) hypertension PSA, Ultra Sensitive 05/19/25 R82.998 - Other abnormal findings in urine UA CC w/rflx Micro + Cult 05/19/25 R82.998 - Other abnormal findings in urine Scribe Plan - Not visible on output: - Schedule a follow-up appointment in eight weeks to reassess blood pressure and review lab results. - Maintain consistent vitamin B12 supplementation and consider injections if levels remain low. - Keep a food diary to identify potential dietary triggers for bowel symptoms. - Consider using fiber supplements like Benefiber to manage bowel symptoms. - Contact the office with your badge number for jury duty documentation.
--- OUTSIDE RECORDS SUMMARY | 2025-05-19 10:59 | XMS_ITS | Patient Health Record ---
[facility] Address [address] [place] [address] Care Team Providers Care Landscape Specialist Name Role Phone Adam Abbasi MD Primary Care Provider Unavaila Russell Alicea Unavailable [phone] Allergies No Known Allergies Reason For Referral No Information Medications Medication SIG (Take, Route, Frequency, Duration) Notes Start Date End Date Status Lisinopril 10 MG 1 tablet Orally Once a day; Duration: 30 day(s) Active Physical Therapy . . Right achilles tendonitis-recommend also massage, taping 2-3x/week 02/20/2023 Active Indomethacin 50 MG 1 capsule with food Orally three times a day with food; Duration: 10 days PRN 12/21/2022 Not-Taking Walking Boot/Pneumatic As directed Wear Daily; Duration: Until further notice Not-Taking Colcrys 0.6 MG 1 tablet Orally twic e a day; Duration: 10 days 07/09/2013 Not-Takin g Indomethacin 50 MG 1 capsule with food Orally Three times a day; Duration: 10 days 07/09/2013 Not-Taking Social History Tobacco Use: Social History Observation Description Date Details (start date - stop date) Never Smoker NA - NA Tobacco use other than smoking: Question Answer Notes Are you an other tobacco user? No Tobacco Control (Standard) Question Answer Notes Tobacco use: Nonsmoker Additional Findings: Tobacco non-user Current no nsmoker AUDIT-C (Standard) Question Answer Notes Did you have a drink containing alcohol in the p ast year? 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 Vital Signs Blood pressure diastolic 80 mm Hg 09/04/2024 Height 6ft 2 in in 09/04/2024 Blood pressure systolic 120 mm Hg 09/04/2024 Weight 225 lbs 09/04/2024 BMI 28.89 kg/m2 09/04/2024 Encounters Encounter Location Date Provider Diagnosis [facility] [address] 09/04/2024 Russell Dumont Achilles tendinitis of right lower extremity M76.61 ; Pain of right heel M79.671 ; Exostosis of right posterior calcaneus M77.31 ; Acquired Lisseth's deformity of right heel M92.61 and Short Achilles tendon (acquired), 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 [facility] [address] [address] 09/04/2024 Russell Dumont Assessments Encounter Date Diagnosis (ICD Code) Assessment Notes Treatment Notes Treatment Clinical Notes Section Notes 09/04/2024 Pain of right heel (ICD-10 - M79.671) 09/04/2024 Achilles tendinitis of right lower extremity (ICD-10 - M76.61) Patient Educated with: HEEL CORD STRETCHES.pdf (HEEL CORD STRETCHES.pdf) Patient Educated with: RICE THERAPY.pdf (RICE THERAPY.pdf) 09/04/2024 Exostosis of right posterior calcaneus (ICD-10 - M77.31) 09/04/2024 Acquired Lisseth's deformity of right heel (ICD-10 - M92.61) 09/04/2024 Short Achilles tendon (acquired), right ankle (ICD-10 - M67.01) Plan Of Treatment Pending Test Test Name Order Date *Uric Acid, Serum 07/09/2013 *Sedimentation Rate-Westergren 3 X ray : Foot, left 3V 02/13/2012 X ray : Foot, right 3V 02/13/2012 X ray : Foot, right 3V 12/21/2022 X ray : Foot, right 3V 09/04/2024 Insurance Providers Payer Name Payer Address Payer Phone Subscriber Number Group Number Insured Name Patient Relationship to Insured Coverage Start Date Coverage End Date Blue Benefits [address] [address] [place] [address] [id number] Matilda Powell Spouse - patient is the spouse of the insured Medical (General) History Medical History History ICD Code Gout chicken pox High blood pressure Surgical History Surgery Date(Month/Year)
--- OUTSIDE RECORDS SUMMARY | 2025-05-19 10:59 | XMS_ITS | Patient Health Record ---
Author Organization [facility] Address [address] [place] [address] Care Team Providers Care Supervisor Metalizing Name Role Phone Ayleen (RETIRED) Adam DENIS Primary Care Provide r Unavailable Khari Monroy Unavailable [phone] Allergies No Known Allergies Reason For Referral No Information Medications Medication SIG (Take, Route, Fr equency, Duration) Notes Start Date End Date Status Lisinopril 10 MG 1 tablet Orally Once a day Active Immunizations Vaccine Route Administration Date Status Comme nts Influenza Unknown 08/16/2021 Refused Problems Problem Type SNOMED Code ICD Code Onset Dates Problem Status W/U Status Risk Notes Problem Screening for malignant neoplasm of colon (133061216) Encounter for screening for malignant neoplasm of colon (Z12.11) Active confirmed Problem Screening for malignant neoplasm of rectum (779614568) Encounter for screening for malignant neoplasm of rectum (Z12.12) Active confirmed Problem Preprocedural examination (590705424143110) Preprocedural examination (Z01.818) Active confirmed Problem History of adenomatous polyp of colon (170432547) Hx of adenomatous colonic polyps (Z86.010) Active confirmed Problem Diverticulosis of colon (208294875) Diverticulosis of colon (K57.30) Active confirmed Plan Of Treatment Pending Test Test Name Order Date Pathology 09/29/2021 Future Test Test Name Order Date COLONOSCOPY 07/27/2015 COLONOSCOPY 08/16/2021 Insurance Providers Payer Name Payer Address Payer Phone Subscriber Number Group Number Insured Name Patient Relationship to Insured Coverage Start Date Coverage End Date [employer] [place] [address] [address] [place] [address] [id number] ELIZAKHARI ESPINAL Self - patient is the insured Medical (General) History Medical History History ICD Code Colonoscopy 01-16-2010 and in 2004--small tubular adenomas removed, mild sigmoid diverticulosis, small internal hemorrhoids HTN Denies PA,DM,CVA,Lung disease,renal dise ase Colonoscopy September 2015 with a small tubu lar adenoma removed Low Vit B12 Surgical History Surgery Date(Month/Year)
== END 2025-05-19 10:45 | disposition home or self-care (01) ==
PROVIDERS: PCP Physician Assistant Medical; Visit Provider Physician Assistant Medical
DX: I10 Essential (primary) hypertension (principal); R79.89 Other specified abnormal findings of blood chemistry; R82.998 Other abnormal findings in urine; J44.9 Chronic obstructive pulmonary disease, unspecified; K59.1 Functional diarrhea; M10.9 Gout, unspecified; E66.9 Obesity, unspecified

== ENCOUNTER 2025-05-19 10:26 | Outpatient (REF) | payer OTHER, SELFPAY ==
[2025-05-19 11:43] LABS: Appearance Urine Clear; Glucose Urine UA Negative (Negative); PH 5.5 (5.0-9.0); Specific Gravity - Urine 1.020 (1.005-1.025); UMIC TRIGGER UACC YES
[2025-05-19 11:50] LABS: Hematocrit 48.0 % (42.0-52.0); Hemoglobin 15.9 g/dl (14.0-18.0); Mean Corpuscular HGB Conc 33.1 g/dl (31.0-36.0); Mean Corpuscular Hemoglobin 30.5 pg (27.0-33.0); Mean Corpuscular Volume 92.1 fL (80.0-98.0); NRBC Abs Auto 0.000 X10*3/uL (0.0-0.012); NRBC Pct Auto 0.0 /100WBC (0.0-0.2); Platelet Count 356 X10*3/uL (160-400); Red Blood Count 5.21 X10*6/uL (4.60-5.80); White Blood Count 7.7 X10*3/uL (4.8-10.8)
[2025-05-19 11:58] LABS: Alanine Aminotransferase 25 U/L (0-40); Albumin Level 4.5 g/dL (3.5-5.0); Alkaline Phosphatase 56 U/L (39-117); Anion Gap 11 (12-20); Aspartate Amino Transferase 20 U/L (5-37); Blood Urea Nitrogen 14 mg/dL (9-16); Calcium 9.2 mg/dL (8.4-10.2); Carbon Dioxide 27 mmol/L (22-29); Chloride 108 mmol/L (96-108); Estimated Glomerular Filt Rate > 60; Potassium 4.7 mmol/L (3.3-5.1); Sodium 141 mmol/L (135-145); Total Protein 7.3 g/dL (6.5-8.0)
[2025-05-19 12:01] LABS: UACC Culture Trigger YES
[2025-05-19 12:35] LABS: Vitamin B12 237 pg/mL (200-900)
[2025-05-28 21:09] LABS: PSA, Ultra Sensitive 3.30 ng/mL
== END 2025-05-19 10:27 | disposition home or self-care (01) ==
LOC: HO.10HDL 10:26
PROVIDERS: Visit Provider Physician Assistant Medical
DX: I10 Essential (primary) hypertension (principal); R79.89 Other specified abnormal findings of blood chemistry; R82.998 Other abnormal findings in urine; M10.9 Gout, unspecified; K58.9 Irritable bowel syndrome, unspecified; J44.9 Chronic obstructive pulmonary disease, unspecified; E66.9 Obesity, unspecified; E53.8 Deficiency of other specified B group vitamins; R80.9 Proteinuria, unspecified; K59.1 Functional diarrhea; Z12.5 Encounter for screening for malignant neoplasm of prostate; Z79.899 Other long term (current) drug therapy; Z68.37 Body mass index [BMI] 37.0-37.9, adult; Z91.09 Other allergy status, other than to drugs and biological substances
CPT/HCPCS: 36415; 80053; 81001; 82607; 84153; 84443; 85027; 87086; 96127

== ENCOUNTER 2025-07-19 08:50 | Outpatient (AMB) | payer OTHER, SELFPAY ==
--- OUTSIDE RECORDS SUMMARY | 2025-07-19 08:58 | XMS_ITS | Patient Health Record ---
Author Organization [facility] Address [address] [place] [address] Care Team Providers Care Crm Manager Name Role Phone Ayleen (RETIRED) Adam DENIS Primary Care Provide r Unavailable Khari Monroy Unavailable [phone] Allergies No Known Allergies Reason For Referral No Information Medications Medication SIG (Take, Route, Fr equency, Duration) Notes Start Date End Date Status Lisinopril 10 MG Tablet 1 tablet Orally Once a day Active Immunizations Vaccine Route Administration Date Status Comme nts Influenza Unknown 08/16/2021 Refused Social History Social History Additional Details Category Social Info Options Details Miscellaneous: Marital status: 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 Section Notes: Nonsmoker; no sig alcohol--f ew beers on the weekend Nonsmoker; no sig alcohol--f ew beers on the weekend Problems Problem Type SNOMED Code ICD Code Onset Dates Problem Status W/U Status Risk Notes Problem Screening for malignant neoplasm of colon (981569212) Encounter for screening for malignant neoplasm of colon (Z12.11) Active confirmed Problem Screening for malignant neoplasm of rectum (748327705) Encounter for screening for malignant neoplasm of rectum (Z12.12) Active confirmed Problem Preprocedural examination (115392962771672) Preprocedural examination (Z01.818) Active confirmed Problem History of adenomatous polyp of colon (060695298) Hx of adenomatous colonic polyps (Z86.010) Active confirmed Problem Diverticulosis of colon (974446980) Diverticulosis of colon (K57.30) Active confirmed Plan Of Treatment Pending Test Test Name Order Date Pathology 09/29/2021 Future Test Test Name Order Date COLONOSCOPY 07/27/2015 COLONOSCOPY 08/16/2021 Insurance Providers Payer Name Payer Address Payer Phone Subscriber Number Group Number Insured Name Patient Relationship to Insured Coverage Start Date Coverage End Date [employer] [place] [address] [address] [address] [place] [address] [id number] KHARI KAY Self - patient is the insured Medical (General) History Medical History History ICD Code Colonoscopy 01-16-2010 and in 2004--small tubular adenomas removed, mild sigmoid diverticulosis, small internal hemorrhoids HTN Denies SC,DM,CVA,Lung disease,renal dise ase Colonoscopy September 2015 with a small tubu lar adenoma removed Low Vit B12 Surgical History Surgery Date(Month/Year)
--- OUTSIDE RECORDS SUMMARY | 2025-07-19 08:58 | XMS_ITS | Patient Health Record ---
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 Vital Signs Blood pressure diastolic 80 mm Hg 09/04/2024 Height 6ft 2 in in 09/04/2024 Blood pressure systolic 120 mm Hg 09/04/2024 Weight 225 lbs 09/04/2024 BMI 28.89 kg/m2 09/04/2024 Encounters Encounter Location Date Provider Diagnosis [facility] [address] 09/04/2024 Russell Dumont Achilles tendinitis of right lower extremity M76.61 ; Pain of right heel M79.671 ; Exostosis of right posterior calcaneus M77.31 ; Acquired Lisseth's deformity of right heel M92.61 and Short Achilles tendon (acquired), 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
[2025-07-19 09:05] VITALS: BP 136/80; PULSE 87; TEMP 36.9; O2SAT 98; BMI 29.5
--- NOTE | 2025-07-19 09:05 | A.OFFPC_ITS ---
Vital Signs 07/19/25 09:05 Height 6 ft 2 in Weight 230 lb BMI 29.5 BP 136/80 Blood Pressure Location Lt brachial Position Sitting Pulse 87 Pulse Source Pulse Oximeter Temp 98.4 F Temp Source Temporal Artery Scan Pulse Oximetry (%) 98 Oxygen Delivery Method Room Air Intake Visit Reasons: 8 week f/u Finishing Range Supervisor Required: No Accompanied by: Self / Same As Patient Allergies No Known Allergies Allergy (Verified 07/19/25 09:06) Medication List - Last Reconciled 07/19/25 by LIANE George latanoprost 0.005% drtrisha ophthalmic (eye) lisinopril 20 mg PO DAILY Tobacco use date assessed: 07/19/25 Fall risk assessment: No Falls in past year Last assessed Fall Risk: 07/19/25 Dental Screening Dental Screen Date: 07/19/25 Did you have a dental visit in the last 12 months?: Yes Did you have a dental problem in the last 6 months where you did not have access to dental care?: No HPI HPI Comments History of Present Illness Details History of Present Illness The patient is a 64 year old male with HTN, Gout, IBS, COPD and obesity presenting for follow-up and management of chronic diarrhea. He reports a history of chronic diarrhea that has plagued him for years, characterized by sudden, urgent, and liquidy stools that can occur two to three times a day, primarily between 8 a.m. and 2 p.m. This condition dictates his daily activities and has raised concerns about his ability to fulfill his jury duty obligation. In terms of diet, the patient grazes throughout the day, avoids large meals and sandwiches, and limits his bread intake. He reports eating fruit but not a lot of vegetables. He has reduced the cream in his daily coffee, which seems to have helped his symptoms slightly. He is on Lisionpril 20mg. His BP today was 136/80. Recent bloodwork and urine studies were normal, showing no proteinuria, normal kidney function, a good B12 level, and no anemia. His PSA level is stable and within the normal range compared to previous tests. The patient is due for his next colonoscopy in 2026. Medical History: - Chronic diarrhea - Hypertension - Benign prostatic hyperplasia Medications: - Lisinopril - Eye drops - B12 supplement, taken intermittently Family History: - Daughter has similar gastrointestinal symptoms - Sister has gluten intolerance Health Maintenance Recent lab results were reviewed and found to be reassuring, with normal kidney function, B12 levels, and a stable PSA. The patient is up-to-date with colonoscopy screening, with the next one not due until 2026. Medication reconciliation was completed, and he has adequate supplies of his lisinopril and eye drops. Social History - Diet: Reports grazing throughout the d ay and avoiding large meals. - Substance use: Drinks one or two coffe es a day. Results - Labs: Recent bloodwork revealed normal kidney function, normal B12 level, and a normal blood count without anemia. - Labs: PSA is stable and within normal range. - Labs: Urinalysis was negative for prot ein. Patient was informed and verbally consented to the use of an ambient scribe for clinic note documentation during this visit. [facility] Medical History Obesity (BMI 35.0-39.9 without comorbidity) Diarrhea Foamy urine Gout COVID-19 vaccine series completed HTN (hypertension) Dyspnea Asthma-COPD overlap syndrome Surgical History H/O colonoscopy (~09/29/21) Family History Mother No problems noted. Father No problems noted. Social History Housing: House Are you a primary assurance services manager health care to a significant other at home: No Do you presently have visiting nurse or other home services: No Patient Tobacco Use Status: Never used Tobacco e-Cigarette/Vaping Use: Never Used service: No Current occupational status: employed Cognitive needs: No Hearing needs: No Vision needs: Yes (reading glasses) Questionnaire PHQ-9 Over the last 2 weeks, how often have you been bothered by any of the following problems? 1. Little interest or pleasure in doing things: not at all 2. Feeling down, depressed, or hopeless: not at all 3. Trouble falling or staying asleep, or sleeping too much: not at all 4. Feeling tired or having little energy: not at all 5. Poor appetite or overeating: not at all 6. Feeling bad about yourself - or that you are a failure or have let yourself or your family down: not at all 7. Trouble concentrating on things, such as reading the newspaper or watching television: not at all 8. Moving or speaking so slowly that other people could have noticed. Or the opposite - being so fidgety or restless that you have been moving around a lot more than usual: not at all 9. Thoughts that you would be better off or of hurting yourself in some way: not at all Total score: 0 Depression Screening Interpretation: Negative Depression Screening Done: Yes Source: Developed by Drs. Tevin Caraballo, Vicky Pacheco, Earl King and colleagues, with an educational surinder from [employer]. Thrive Questionnaire Date Thrive assessed: 07/19/25 I am a: Patient Within the past 12 months, did the food you bought not last and you didn't have the money to get more?: Never true Within the past 12 months, did you worry whether your food would run out before you got money to buy more?: Never true Do you have trouble paying for medicines?: No Do you have trouble getting transportation to medical appointments?: No Do you have trouble paying your heating and electricity bill?: No Do you have trouble taking care of your child, family member or friend?: No Do you have trouble with day-to-day activities such as bathing, preparing meals, shopping, managing finances, etc.?: No Are you currently unemployed and looking for a job?: No Are you interested in more education?: No THRIVE Score: 0 AUDIT C Alcohol Use Questionnaire (AUDIT-C) 1. How often do you have a drink containing alcohol?: Never 3. How often do you have six or more drinks on one occasion?: Never Total Score: 0 SHIRA-7 AMB Questionnaire SHIRA-7 Date SHIRA - 7 assessed: 07/19/25 Feeling nervous, anxious, or on edge: 0 = Not at all Not being able to stop or control worryin = Not at all Worrying too much about different things: 0 = Not at all Trouble relaxin = Not at all Being so restless that it is hard to sit still: 0 = Not at all Becoming easily annoyed or irritable: 0 = Not at all Feeling afraid as if something awful might happen: 0 = Not at all Total SHIRA-7 score (0-4 normal; 5-9 mild; 10-14 moderate; 15-21 severe): 0 Source: Developed by Drs. Tevin Caraballo, Vicky Pacheco, Earl King and colleagues, with an educational surinder from [employer]. Review of Systems Narrative Review of Systems - Constitutional: Reports recent slight weight loss. - Gastrointestinal: Reports a chronic history of urgent, loose, liquidy stools, which can occur 2-3 times per day. - Genitourinary: Denies issues with urination. - Hematologic: Denies anemia. - All other systems were reviewed and are negative. Physical exam (Primary Care) Vital Signs: Last Vital Signs Temp 98.4 F 07/19/25 09:05 Pulse 87 07/19/25 09:05 BP 136/80 07/19/25 09:05 Pulse Ox 98 07/19/25 09:05 Oxygen Delivery Method Room Air 07/19/25 09:05 BMI result Body Mass Index 29.5 GENERAL Well developed, obese, in no apparent distress HEENT Head-Normocephalic Neck- Supple, No lymphadenopathy, thyroid WNL RESPIRATORY Normal I:E, Clear to auscultation CARDIOVASCULAR Regular, rate and rhythm, No murmurs or rubs GASTROINTESTINAL Soft, nontender, normal bowel sounds, no masses NEUROLOGICAL Gait normal PSYCHIATRIC Oriented to person, place and time Mood and affect WNL Appearance WNL Speech WNL Thought processes WNL Tobacco/Smoking Status: Tobacco use Status Tobacco use date assessed 07/19/25 07/19/25 09:08 Patient Tobacco Use Status Never used Tobacco 07/19/25 09:08 e-Cigarette/Vaping Use Never Used 07/19/25 09:08 PHQ-9: PHQ-9 Score PHQ-9: Total score 0 07/19/25 09:13 Depression Screening Interpretation: Negative Thrive Assessment: Date of Thrive Assessment Date Thrive assessed 07/19/25 07/19/25 09:08 Narrative Physical Exam - Vitals: Blood pressure is good; weight is down slightly. Coding Level of Care Code Established Pt Est Pt Level 4 (09503) Established Pt Add On Problem Visit Only Patient Type Established Diagnoses Primary hypertension I10 Hypertension type: primary hypertension Functional diarrhea K59.1 Diarrhea type: functional diarrhea Low vitamin B12 level R79.89 Time Spent (min) 35 Comment Time spent on lab review, H&P, Patient education and Letter. Assessment & Plan Assessment & Plan (1) HTN (hypertension): Comment: BP today was 136/80 Code(s): I10 - Essential (primary) hypertension Category: Medical Qualifiers: Hypertension type: primary hypertension Qualified Code(s): I10 - Essential (primary) hypertension Plan: Controlled. Patient will continue current medications. Will monitor. Patient will follow up in 6 months (2) Diarrhea: Code(s): R19.7 - Diarrhea, unspecified Category: Medical Qualifiers: Diarrhea type: functional diarrhea Qualified Code(s): K59.1 - Functional diarrhea Plan: Discussed options with patient. Will try Benafiber. May need referral to GI. Patient to follow up in 3 months or sooner if symptoms persist or worsen. Will do Jury duty letter. (3) Low vitamin B12 level: Code(s): R79.89 - Other specified abnormal findings of blood chemistry Category: Medical Plan: Level was normal. Patient to continue OTC suppliment. Patient to follow up in 6 months or sooner if needed. Plan Plan Patient was informed and verbally consented to the use of an ambient scribe for clinic note documentation during this visit. 1. Chronic Diarrhea The patient presents with a history of chronic urgent diarrhea of unknown etiology, which has been present for years and impacts his daily life. He was advised to start a trial of a fiber supplement, specifically Benefiber, taking a teaspoon in the morning and at night for a few weeks to add bulk to the stool. He was also instructed to maintain a food diary to identify potential dietary triggers. If his symptoms do not improve, a referral to a software quality tester w ill be considered. A follow-up visit is scheduled in three months to reassess. 2. Administrative Request For Jury Duty The patient expressed concern that his chronic diarrhea and urgency would interfere with his ability to serve jury duty. A letter will be sent to the court detailing his medical condition. Discussion Notes I reviewed the patient's recent lab results, including kidney function, B12, and PSA, and reassured him that they were all normal and stable. We discussed his primary concern of chronic, urgent diarrhea. I explained the role of dietary fiber in forming stool and recommended a trial of Benefiber, starting with a teaspoon twice daily, as it is less likely to cause bloating. I also suggested keeping a food diary to help identify potential triggers like dairy or gluten. We agreed that if his symptoms do not improve, we will proceed with a referral to a software quality tester. I will provide a letter for his jury duty summons. We will follow up in three months to reassess his condition. Patient Instructions - Start taking Benefiber powder. - Begin with one teaspoon in the morning and one at night for a couple of weeks to see if it helps your loose stools. - You may increase the dose if your stools do not become more formed. - Keep a food diary by writing down what you eat and noting any digestive symptoms to see if you can find a connection to certain foods. - A letter will be sent to the court regarding your jury duty. - Continue your current medications; you have enough refills for now. - Please schedule a follow-up appointment in about three months.
== END 2025-07-19 09:32 | disposition home or self-care (01) ==
LOC: HO.HMCHD 08:50
PROVIDERS: PCP Internal Medicine; Visit Provider Physician Assistant Medical
DX: I10 Essential (primary) hypertension (principal); K59.1 Functional diarrhea; R79.89 Other specified abnormal findings of blood chemistry